=== PATIENT | female | born 1965 | race Caucasian/White ===

== ENCOUNTER 2022-02-22 10:05 | Outpatient (CLI) | payer BC, SELFPAY ==
--- NOTE | ~2022-02-22 | XR_ITS ---
XR abdomen/kub 1V 02/22/2022 10:34 Indication: Renal stones Procedure: KUB Comparison: No prior studies for comparison. Findings: There is a right renal stone measuring 1.9 x 1.2 cm, presumably in the renal pelvis. There are cholecystectomy clips. There are surgical changes in the right mid abdomen. Nonobstructive bowel gas pattern. There are pelvic phleboliths. Impression: 1: Right nephrolithiasis. Reviewed, dictated and finalized at location A. Impression: 1: Right nephrolithiasis.
--- NOTE | ~2022-02-22 | CT_ITS ---
EXAMINATION: CT abdomen pelvis wo con DATE: 02/22/2022 10:34 INDICATION: Right flank pain. Hematuria. Renal calculus. TECHNIQUE: Computed tomography (CT) of the abdomen and pelvis was performed without intravenous contr ast. Automated exposure control and iterative reconstruction technique were employed. Exam dose: 104 0.41 mGy-cm total exam DLP. COMPARISON: 02/22/2022 KUB FINDINGS: Minimal discoid atelectasis or scarring at the lung bases. Normal heart size. No pericardia l or pleural effusion. Small sliding hiatal hernia. Status post cholecystectomy. No hepatic, splenic, pancreatic, adrenal or renal space-occupying mass l esion is evident on this limited noncontrast examination. 10.2 x 19 mm right renal pelvic calculus with attenuation of 849 Hounsfield units. There are 2 or 3 subtle pinpoint nonobstructing left renal calculi. No ureteral calculus is noted on either side. Minimal right hydronephrosis. Normal caliber of the abdominal aorta. No intraperitoneal or retroperitoneal or pelvic mass lesion or adenopathy or ascites. Probable left approximately 2.1 cm uterine fibroid. The uterus, adnexa and urinary bladder are otherw ise unremarkable. Small fat-containing umbilical hernia. Diffuse idiopathic skeletal hyperostosis of the thoracic spine. No suspicious osteolytic or osteoblas tic lesions are noted. IMPRESSION: 1.2 x 19 mm right renal pelvic calculus. Minimal right hydronephrosis. Minimal nonobstructive left nephrolithiasis No ureteral calculus Small sliding hiatal hernia Status post cholecystectomy Reviewed, dictated and finalized at Location A. Reviewed, dictated and finalized at location B. IMPRESSION: 1.2 x 19 mm right renal pelvic calculus. Minimal right hydronephro sis. Minimal nonobstructive left nephrolithiasis No ureteral calculus Small sliding hiatal hernia Status post cholecystectomy
== END 2022-02-22 10:06 ==
PROVIDERS: PCP Internal Medicine Infectious Disease; Visit Provider Urology
DX: N20.0 Calculus of kidney (principal); K44.9 Diaphragmatic hernia without obstruction or gangrene; Z90.49 Acquired absence of other specified parts of digestive tract
CPT/HCPCS: 74018; 74176

== ENCOUNTER 2022-02-26 15:25 | Outpatient (CLI) | payer BC, SELFPAY ==
--- NOTE | 2022-02-26 15:30 | ECG_ITS ---
Measurements Intervals [employer] Rate: 86 P: 65 CO: 149 QRS: 13 QRSD: 101 T: 73 QT: 376 QTc: 451 Interpretive Statements SINUS RHYTHM NONSPECIFIC T-WAVE ABNORMALITY BASELINE ARTIFACT BORDERLINE ECG NO PREVIOUS ECG AVAILABLE FOR COMPARISON Electronically Signed On 02-26-2022 16:40:52 CDT by Lazaro Blackmon M.D.
[2022-02-26 16:10] LABS: Prothrombin Time 12.4 Seconds (11.1-14.7)
== END 2022-02-26 15:26 | disposition home or self-care (01) ==
LOC: ANHSURGERY 15:32
PROVIDERS: PCP Internal Medicine Infectious Disease; Visit Provider Urology
DX: Z01.818 Encounter for other preprocedural examination (principal); I10 Essential (primary) hypertension; N20.0 Calculus of kidney
CPT/HCPCS: 36415; 85610; 85730; 87086; 87088; 93005

== ENCOUNTER 2022-03-02 01:04 | Day surgery (SDC) | payer BC, SELFPAY ==
[2022-02-26 11:31] VITALS: BMI 39.1
--- NOTE | 2022-02-26 11:44 | PC.NURSE ---
Report to the Outpatient Waiting Room, entrance under the green pavilion located off [facility], at time 10:30 on date 03/02/22. OR Time: 12:30. - You and your visitor will be asked a series of questions to screen for COVID 19 for your protection. - Only one visitor is allowed at this time. - The patient visitor is requested to leave or wait in car when not with patient. - A mask is required within the hospital. Patients may have clear liquids (water, carbonated beverages, clear teas, apple juice) until 3 hours prior to surgery (9:30) with a maximum of 20 ounces. - No food from midnight until time of surgery Take the following medications with a SIP of water the morning of surgery: BUPROPION, FLUOXETINE, GABAPENTIN Medications to discontinue per physician: N/A Date to take last dose: N/A Please no make-up, nail pashto, hairspray, perfume, deodorant, or body powder the day of surgery. No jewelry (including any body piercings) or valuables the day of surgery, leave them at home. Please take a shower or bath the night before, or the morning of, surgery with an antibacterial soap. Wear comfortable, loose fitting clothing. - Jewelry must be removed prior to entering the operating room. Rings and piercings that are not removed may be cut off. - The hospital will not accept responsibility for valuables. - Please leave all valuables, including medications, at home the day of surgery. If you are going home after surgery, a licensed vending route driver must drive you home. - NO public transportation without another adult. - We recommend that an adult stay with you for 24 hours following discharge. - We also recommend that you do not drive, make important decision, drink alcoholic beverages, or take any drugs that were not prescribed by your health care provider for at least 24 hours after your discharge time. Follow any additional instructions given to you from your surgeon. If you or anyone in your household have experienced Covid symptoms in the past week, please notify your surgeon or the nurse liaison at the phone number below for possible testing. Telephone instructions given to PT - JORDON LAGUNA and asked if any additional questions and then verbalized understanding. Patient advised to call surgeon office or pre surgery nurse liaison [phone] if any additional questions.
--- NOTE | 2022-03-01 15:27 | WPDANESEPPF ---
Anes - Initial Pre Proc Eval Procedure: Operation Date: 03/02/22 12:30 Proposed Procedures p Right Extracorporeal Shock Wave Lithotripsy - Anoop Brower MD s Cystoscopy, Right Retrograde Pyelogram, Right Ureteral Stent Placement - Anoop Brower MD Date/Time: 03/01/22 15:27 Surgeon: Anoop Brower MD Pre Op Diagnosis: Rt Renal Stone Patient Data Age: 57 Gender: F Height: 1.7 m Weight: 113.4 kg Allergies Allergy/AdvReac Type Severity Reaction Status Date / Time Penicillins Allergy Rash Verified 02/26/22 11:29 Home Medications Medication Instructions Recorded Confirmed Type amlodipine 10 mg-atorvastatin 20 1 tablet PO DAILY 02/19/20 02/26/22 History mg tablet bupropion HCl 300 mg 24 hr tablet, 300 mg PO QAM 02/19/20 02/26/22 History extended release (Wellbutrin XL) fluoxetine 40 mg capsule 40 mg PO DAILY 02/19/20 02/26/22 History gabapentin 300 mg capsule 300 mg PO TID 02/26/22 02/26/22 History Patient hx anesthesia problems: none Family hx anesthesia problems: none Results Review: All pre-operative results and documents have been reviewed as part of the pre-operative evaluation. [facility] Past Medical History Medical History (Updated 03/01/22 @ 15:29 by Marcial Arellano MD) Anemia Anxiety delivery delivered Cholecystectomy planned Crohn's disease Depression Fibromyalgia Hyperlipidemia Hypertension Obesity BEHZAD on CPAP Surgical History Surgical History H/O tubal ligation History of appendectomy Family History Family History Father Carcinoma of colon Social History Social History Smoking status: Never smoker Alcohol intake: current Drinks per week: 2 Alcohol use details: 3-4/MONTH Substance use: never Substance use type: does not use Living arrangements: with family Additional living arrangements comments: SON Spiritual care concerns: No Anes - Eval Final PreProcedure Day of Procedure 03/01/22 15:27 Patient weight: obese Heart: regular rate and rhythm Lungs: clear to auscultation and normal air movement Airway: Mallampati scale class II Neurological: alert and oriented Last oral intake: >/= 8 hours ASA classification: III Emergent: no Anesthetic plan: proceed Anesthesia type and monitoring: general LMA Results Review: All pre-operative results and documents have been reviewed as part of the pre-operative evaluation. Informed Consent: The patient's anesthetic plan and its attendant risks and benefits were discussed with the patient/family/POA. Questions were solicited and answers provided to the satisfaction of the patient/family/POA.
--- NOTE | ~2022-03-02 | XR_ITS ---
EXAMINATION: XR abdomen/kub 1V DATE: 03/02/2022 10:41 INDICATION: Right kidney stone. TECHNIQUE: A supine view of the abdomen on 2 radiographs was obtained. COMPARISON: CT abdomen and pelvis 02/22/2022 FINDINGS: There are no dilated loops of bowel. There is a bowel staple line in right abdomen. There i s a 17 mm stone in right kidney. Surgical clips in the right upper quadrant are likely from cholecyst ectomy. There are phleboliths in the pelvis. IMPRESSION: 1. 17 mm stone in right kidney. Reviewed, dictated and finalized at location A.
--- NOTE | 2022-03-02 10:50 | WPDHPUPDATE1 ---
History and Physical Update Update Date/Time: 03/02/22 10:50 History and Physical has been reviewed, including an updated exam of the patient. There are NO changes in the patient's condition. Risks, benefits, and alternatives have been discussed and questions answered. Patient agrees to proceed with procedure. Proceed with cysto, right retrograde pyelogram, right stent placement, lithotripsy of right renal calculus
[2022-03-02 11:00] VITALS: BP 150/100; PULSE 108; RESP 16; TEMP 36.9; O2SAT 97
[2022-03-02] MEDS: LACTATED RINGERS 1,000 ML 30 ML IV CONT ×2 (11:18→12:56)
[2022-03-02] MEDS: ceFAZolin 2 GM/D5W 50 ML 2 GM/50 ML BAG IVPB (11:59)
--- NOTE | 2022-03-02 12:46 | P.OP_ITS ---
Procedure Note - Detailed Date of Procedure 03/02/22 Pre-op Diagnosis Rt Renal Stone Post-op Diagnosis Same Procedure Performed Cystoscopy, right ureteral stent placement 4.8 Micronesian contour, lithotripsy of right renal calculus 2 cm Surgeon Anoop Brower MD Anesthesia General Description of Procedure Patient is taken to the operative suite correctly identified. Once anesthesia was obtained she was placed in frog-leg position and prepped and draped usual sterile fashion. Sixteen Micronesian scope was inserted into the bladder. There was no tumors noted. The right ureteral orifice was cannulated with a guidewire. A 4.8 Micronesian contour stent was placed with the proximal end coiled around the stone in the renal pelvis and the distal in bladder. 2% viscous lidocaine was inserted into the urethra. Patient was repositioned and the stone was localized in both planes. Two thousand five hundred shocks were given to the stone. Patient tolerated procedure well without any complications and was taken recovery room stable condition. She will follow-up in 7-10 days with KUB. Drains Yes Packing No Pathology None sent Complications No immediate complications Condition Stable Disposition PACU
[2022-03-02 12:55] VITALS: BP 127/96; PULSE 97; RESP 12; TEMP 36.5; O2SAT 100
[2022-03-02 13:10] VITALS: BP 141/92; PULSE 104; RESP 17; O2SAT 100
[2022-03-02 13:25] VITALS: BP 151/97; PULSE 97; RESP 18; O2SAT 96
[2022-03-02 13:31] VITALS: BP 160/96; PULSE 90; RESP 17
[2022-03-02 14:00] VITALS: BP 150/95; PULSE 94; RESP 17
== END 2022-03-02 14:31 | disposition home or self-care (01) ==
PROVIDERS: PCP Internal Medicine Infectious Disease; Visit Provider Urology
PROC: (CPT 50590; principal; 2022-03-02 12:30)
PROC: (CPT 52352; 2022-03-02 12:30)
DX: N20.0 Calculus of kidney (principal); R10.9 Unspecified abdominal pain; D64.9 Anemia, unspecified; F41.9 Anxiety disorder, unspecified; G47.33 Obstructive sleep apnea (adult) (pediatric); F32.A Depression, unspecified; K50.90 Crohn's disease, unspecified, without complications; M79.7 Fibromyalgia; E78.5 Hyperlipidemia, unspecified; E66.9 Obesity, unspecified; Z68.38 Body mass index [BMI] 38.0-38.9, adult
CPT/HCPCS: 52332; 50590; 74018; A9270; C1769; C2617; J0690; J1100; J2250; J2370; J2405; J2704; J3010; J7030; J7120

== ENCOUNTER → 2022-03-19 12:54 | Outpatient (CLI) | payer BC, SELFPAY ==
--- NOTE | ~2022-03-19 | XR_ITS ---
EXAMINATION: XR abdomen/kub 1V INDICATION: Calculus of the kidney TECHNIQUE: Supine views of the abdomen were obtained on 2 radiographs. COMPARISON: 03/02/2022 FINDINGS: A right internal ureteral stent has been placed in expected position. A stone previously pr ojecting in the right renal pelvis now appears to project in the lower pole of the right kidney. No s tones are identified along the internal ureteral stent. There are phleboliths of the pelvis. A surgic al anastomosis is noted in the right mid abdomen. There is mild osteoarthritis of the hips. Surgical clips in the right upper quadrant are likely from prior cholecystectomy. IMPRESSION: 1. Right internal ureteral stent placed in expected position. Previously identified stone of the righ t renal pelvis now projects in the right kidney lower pole. Reviewed, dictated and finalized at location B. IMPRESSION: 1. Right internal ureteral stent placed in expected position. Previously identi fied stone of the right renal pelvis now projects in the right kidney lower amelia e.
== END ==
PROVIDERS: PCP Internal Medicine Infectious Disease; Visit Provider Urology
DX: N20.0 Calculus of kidney (principal)
CPT/HCPCS: 74018

== ENCOUNTER 2022-03-23 09:28 | Outpatient (CLI) | payer BC, SELFPAY ==
[2022-03-23 10:19] LABS: Prothrombin Time 12.5 Seconds (11.1-14.7)
== END 2022-03-23 09:29 | disposition home or self-care (01) ==
LOC: ANHSURGERY 09:32
PROVIDERS: PCP Internal Medicine Infectious Disease; Visit Provider Urology
DX: N20.0 Calculus of kidney (principal); Z01.818 Encounter for other preprocedural examination
CPT/HCPCS: 36415; 85610; 85730; 87086; 87088

== ENCOUNTER 2022-03-30 00:33 | Day surgery (SDC) | payer BC, SELFPAY ==
[2022-03-21 15:55] VITALS: BMI 38.9
--- NOTE | 2022-03-21 16:00 | PC.NURSE ---
Report to the Outpatient Waiting Room, entrance under the green pavilion located off [facility], at time 6:30 on date 03/30/22. OR Time: 8:30. - You and your visitor will be asked to self-screen and do not enter if you have any COVID symptoms. - Only one visitor and NO children visitors are allowed at this time. - The patient visitor is requested to leave or wait in car when not with patient due to restrictions. - A mask is required within the hospital. Patients may have clear liquids (water, carbonated beverages, clear teas, apple juice) until 3 hours prior to surgery (5:30) with a maximum of 20 ounces. - No food from midnight until time of surgery Take the following medications with a SIP of water the morning of surgery: BUPROPION, FLUOXETINE, GABAPENTIN Medications to discontinue per physician: N/A Date to take last dose: N/A Please no make-up, nail cypriot, hairspray, perfume, deodorant, or body powder the day of surgery. No jewelry (including any body piercings) or valuables the day of surgery, leave them at home. Please take a shower or bath the night before, or the morning of, surgery with an antibacterial soap. Wear comfortable, loose fitting clothing. - Jewelry must be removed prior to entering the operating room. Rings and piercings that are not removed may be cut off. - The hospital will not accept responsibility for valuables. - Please leave all valuables, including medications, at home the day of surgery. If you are going home after surgery, a licensed auto crane driver must drive you home. - NO public transportation without another adult. - We recommend that an adult stay with you for 24 hours following discharge. - We also recommend that you do not drive, make important decision, drink alcoholic beverages, or take any drugs that were not prescribed by your health care provider for at least 24 hours after your discharge time. Follow any additional instructions given to you from your surgeon. If you or anyone in your household have experienced Covid symptoms in the past week, please notify your surgeon or the nurse liaison at the phone number below for possible testing. Telephone instructions given to PT - JORDON LAGUNA and asked if any additional questions and then verbalized understanding. Patient advised to call surgeon office or pre surgery nurse liaison [phone] if any additional questions.
--- NOTE | 2022-03-29 15:39 | P.PNAN_ITS ---
Anes - Initial Pre Proc Eval Procedure: Operation Date: 03/30/22 08:30 Proposed Procedures p Right Renal Extracorporeal Shock Wave Lithotripsy - Anoop Brower MD Date/Time: 03/29/22 15:39 Surgeon: Anoop Brower MD Pre Op Diagnosis: right renal kidney stone Patient Data Age: 57 Gender: F Height: 1.7 m Weight: 112.7 kg Allergies Allergy/AdvReac Type Severity Reaction Status Date / Time Penicillins Allergy Rash Verified 03/21/22 16:03 Home Medications Medication Instructions Recorded Confirmed Type amlodipine 10 mg-atorvastatin 20 1 tablet PO DAILY 02/19/20 03/21/22 History mg tablet bupropion HCl 300 mg 24 hr tablet, 300 mg PO QAM 02/19/20 03/21/22 History extended release (Wellbutrin XL) fluoxetine 40 mg capsule 40 mg PO DAILY 02/19/20 03/21/22 History gabapentin 300 mg capsule 300 mg PO TID 02/26/22 03/21/22 History Patient hx anesthesia problems: none Family hx anesthesia problems: none Results Review: All pre-operative results and documents have been reviewed as part of the pre- operative evaluation. [facility] Past Medical History Medical History (Updated 03/01/22 @ 15:29 by Marcial Arellano MD) Anemia Anxiety delivery delivered Cholecystectomy planned Crohn's disease Depression Fibromyalgia Hyperlipidemia Hypertension Obesity BEHZAD on CPAP Surgical History Surgical History H/O tubal ligation History of appendectomy Family History Family History Father Carcinoma of colon Social History Social History Smoking status: Never smoker Alcohol intake: current Drinks per week: 2 Alcohol use details: 3-4/MONTH Substance use: never Substance use type: does not use Additional living arrangements comments: SON Spiritual care concerns: No Anes - Eval Final PreProcedure Day of Procedure 03/29/22 15:39 Patient weight: obese Heart: regular rate and rhythm Lungs: clear to auscultation and normal air movement Airway: Mallampati scale class II Neurological: alert and oriented Last oral intake: >/= 8 hours ASA classification: III Emergent: no Anesthetic plan: proceed Anesthesia type and monitoring: general LMA Results Review: All pre-operative results and documents have been reviewed as part of the pre- operative evaluation. Informed Consent: The patient's anesthetic plan and its attendant risks and benefits were discussed with the patient/family/POA. Questions were solicited and answers provided to the satisfaction of the patient/family/POA.
[2022-03-30] VITALS (8 sets, daily range): BP systolic 120–170; BP diastolic 85–114; PULSE 86–93; RESP 12–18; TEMP 36.3–36.6; O2SAT 98–100
--- NOTE | ~2022-03-30 | XR_ITS ---
EXAMINATION: XR abdomen/kub 1V DATE: 03/30/2022 06:58 INDICATION: Kidney stone. TECHNIQUE: A supine view of the abdomen was obtained. COMPARISON: CT abdomen and pelvis 02/22/2022, abdomen radiograph 03/19/2022 FINDINGS: There are no dilated loops of bowel. There are phleboliths in the pelvis. There is a right internal ureteral stent in expected position. There are stones in right kidney lower pole. The larges t stone or cluster of stones measures 14 mm. There are staple lines in right abdomen. Surgical clips in the right upper quadrant are likely from cholecystectomy. IMPRESSION: 1. Right kidney stones. Right internal ureteral stent in expected position. Reviewed, dictated and finalized at location A.
[2022-03-30] MEDS: LACTATED RINGERS 1,000 ML 30 ML IV CONT (07:28)
--- NOTE | 2022-03-30 07:44 | WPDHPUPDATE1 ---
History and Physical Update Update Date/Time: 03/30/22 07:44 History and Physical has been reviewed, including an updated exam of the patient. There are NO changes in the patient's condition. Risks, benefits, and alternatives have been discussed and questions answered. Patient agrees to proceed with procedure. Proceed with eswl of right renal calculus
[2022-03-30] MEDS: ceFAZolin 2 GM/D5W 50 ML 2 GM/50 ML BAG IVPB (08:03)
--- NOTE | 2022-03-30 08:43 | P.OP_ITS ---
Procedure Note - Detailed Date of Procedure 03/30/22 Pre-op Diagnosis right renal kidney stone Post-op Diagnosis Same Procedure Performed ESWL right renal calculus Surgeon Anoop Brower MD Anesthesia General Description of Procedure Patient is taken to the operative suite correctly identified. Once anesthesia was obtained the stone was localized in both planes. Two thousand five hundred shocks were given to the lower pole stones. Patient tolerated procedure well without complications and was taken recovery stable condition. She will follow- up in 7-10 days with KUB. Drains Yes (Has right ureteral stent) Packing No Pathology None sent Complications No immediate complications Condition Stable Disposition PACU
== END 2022-03-30 10:45 | disposition home or self-care (01) ==
PROVIDERS: PCP Internal Medicine Infectious Disease; Visit Provider Urology
PROC: (CPT 50590; principal; 2022-03-30 08:30)
DX: N20.0 Calculus of kidney (principal); I10 Essential (primary) hypertension; E78.5 Hyperlipidemia, unspecified; M79.7 Fibromyalgia; D64.9 Anemia, unspecified; G47.33 Obstructive sleep apnea (adult) (pediatric); K50.90 Crohn's disease, unspecified, without complications; F41.9 Anxiety disorder, unspecified; F32.A Depression, unspecified; E66.9 Obesity, unspecified; Z68.39 Body mass index [BMI] 39.0-39.9, adult
CPT/HCPCS: 50590; 74018; J0690; J2250; J3010; J7120

== ENCOUNTER → 2022-04-06 09:45 | Outpatient (CLI) | payer BC, SELFPAY ==
--- NOTE | ~2022-04-06 | XR_ITS ---
EXAMINATION: XR abdomen/kub 1V INDICATION: Calculus of the kidney TECHNIQUE: Supine views of the abdomen were obtained on 2 radiographs. COMPARISON: None FINDINGS: A right internal ureteral stent is in expected position. There are stone fragments in the l ower pole of the right kidney without significant change. No definite stone fragments are identified along the internal ureteral stent. There are phleboliths of the pelvis. Surgical changes are noted in the right mid abdomen. There are no dilated loops of bowel. Surgical clips in the right upper quadra nt are likely from prior cholecystectomy. IMPRESSION: 1. Right internal ureteral stent in expected position. 2. Stable right nephrolithiasis. Reviewed, dictated and finalized at location B.
== END ==
PROVIDERS: PCP Internal Medicine Infectious Disease; Visit Provider Urology
DX: N20.0 Calculus of kidney (principal)
CPT/HCPCS: 74018

== ENCOUNTER 2022-04-20 08:09 | Outpatient (CLI) | payer BC, SELFPAY | END 2022-04-20 08:10 | disposition home or self-care (01) | LOC: ANHSURGERY 08:17 | PROVIDERS: PCP Internal Medicine Infectious Disease; Visit Provider Urology | DX: N20.1 Calculus of ureter (principal); Z01.818 Encounter for other preprocedural examination | CPT/HCPCS: 87086; 87088 ==

== ENCOUNTER 2022-04-24 00:29 | Day surgery (SDC) | payer BC, SELFPAY ==
[2022-04-18 09:43] VITALS: BMI 38.9
--- NOTE | 2022-04-18 09:48 | PC.NURSE ---
Report to the Outpatient Waiting Room, entrance under the green pavilion located off [facility], at time 8:45 on date 04/24/22. OR Time: 10:45. Time changes happen often and if your time is changed the preop area will call you the afternoon before. - You and your visitor will be asked to self-screen and do not enter if you have any COVID symptoms. - Only one visitor and NO children visitors are allowed at this time. - The patient visitor is requested to leave or wait in car when not with patient due to restrictions. - A mask is required within the hospital. Patients may have clear liquids (water, carbonated beverages, clear teas, apple juice) until 3 hours prior to surgery (7:45) with a maximum of 20 ounces. - No food from midnight until time of surgery Take the following medications with a SIP of water the morning of surgery: BUPROPION, FLUOXETINE, GABAPENTIN Medications to discontinue per physician: N/A Date to take last dose: N/A Please no make-up, nail yi, hairspray, perfume, deodorant, or body powder the day of surgery. No jewelry (including any body piercings) or valuables the day of surgery, leave them at home. Please take a shower or bath the night before, or the morning of, surgery with an antibacterial soap. Wear comfortable, loose fitting clothing. - Jewelry must be removed prior to entering the operating room. Rings and piercings that are not removed may be cut off. - The hospital will not accept responsibility for valuables. - Please leave all valuables, including medications, at home the day of surgery. If you are going home after surgery, a licensed special education bus driver must drive you home. - NO public transportation without another adult. - We recommend that an adult stay with you for 24 hours following discharge. - We also recommend that you do not drive, make important decision, drink alcoholic beverages, or take any drugs that were not prescribed by your health care provider for at least 24 hours after your discharge time. Follow any additional instructions given to you from your surgeon. If you or anyone in your household have experienced Covid symptoms in the past week, please notify your surgeon or the nurse liaison at the phone number below for possible testing. Telephone instructions given to PT - JORDON PERKHISER and asked if any additional questions and then verbalized understanding. Patient advised to call surgeon office or pre surgery nurse liaison [phone] if any additional questions.
[2022-04-24] VITALS (8 sets, daily range): BP systolic 143–156; BP diastolic 86–104; PULSE 81–93; RESP 16; TEMP 36.4–37; O2SAT 97–100
--- NOTE | ~2022-04-24 | XR_ITS ---
EXAMINATION: XR retrograde pyelo w/stent RT DATE: 04/24/2022 11:03 INDICATION: Right internal ureteral stent placement TECHNIQUE: Fluoroscopic images from a right internal ureteral stent placement are submitted for heather miguel. 15 seconds of fluoroscopy time. FINDINGS: No prior studies for comparison. There is a right double-J internal ureteral stent projecting in expected position, with proximal [place] loop at the level of the renal pelvis and distal loop in the pelvis within the bladder lumen. IMPRESSION: 1. Right internal ureteral stent placement. Please refer to real-time procedural findings for elpidio mcintosh. Reviewed, dictated and finalized at location B. IMPRESSION: 1. Right internal ureteral stent placement. Please refer to real-time procedu ral findings for details.
--- NOTE | 2022-04-24 08:39 | WPDHPUPDATE1 ---
History and Physical Update Update Date/Time: 04/24/22 08:39 History and Physical has been reviewed, including an updated exam of the patient. There are NO changes in the patient's condition. Risks, benefits, and alternatives have been discussed and questions answered. Patient agrees to proceed with procedure. Proceed with cysto, right retrograde pyelogram, right ureteroscopy with holmium laser, possible right stent exchange
--- NOTE | 2022-04-24 09:15 | WPDANESEPPF ---
Anes - Initial Pre Proc Eval Procedure: Operation Date: 04/24/22 10:45 Proposed Procedures p Cystoscopy, Right Ureteroscopy, Right Retrograde Pyelogram, Possible Right Stone Extraction, Possible Right Stent Placement, Possible Holmium Laser Procedure - Anoop Brower MD Date/Time: 04/24/22 09:15 Surgeon: Anoop Brower MD Pre Op Diagnosis: calculus of ureter and kidney Patient Data Age: 57 Gender: F Height: 1.7 m Weight: 113 kg Allergies Allergy/AdvReac Type Severity Reaction Status Date / Time Penicillins Allergy Intermediate Rash Verified 04/24/22 09:11 Home Medications Medication Instructions Recorded Confirmed Type bupropion HCl 300 mg 24 hr tablet, 300 mg PO QAM 02/19/20 04/24/22 History extended release (Wellbutrin XL) fluoxetine 40 mg capsule 40 mg PO DAILY 02/19/20 04/24/22 History gabapentin 300 mg capsule 300 mg PO TID 02/26/22 04/24/22 History amlodipine 10 mg-benazepril 20 mg 1 cap PO DAILY 04/18/22 04/24/22 History capsule Patient hx anesthesia problems: none Family hx anesthesia problems: none Results Review: All pre-operative results and documents have been reviewed as part of the pre-operative evaluation. [facility] Past Medical History Medical History (Updated 03/01/22 @ 15:29 by Marcial Arellano MD) Anemia Anxiety delivery delivered Cholecystectomy planned Crohn's disease Depression Fibromyalgia Hyperlipidemia Hypertension Obesity BEHZAD on CPAP Surgical History Surgical History H/O tubal ligation History of appendectomy Family History Family History Father Carcinoma of colon Social History Social History Smoking status: Never smoker Alcohol intake: current Drinks per week: 2 Alcohol use details: 3-4/MONTH Substance use: never Substance use type: does not use Living arrangements: with family Additional living arrangements comments: SON Gender identity (if verbalized by the patient): Female Sexual Orientation (if Verbalized by the Patient): Straight or Heterosexual Spiritual care concerns: No Anes - Eval Final PreProcedure Day of Procedure 04/24/22 09:15 Patient weight: obese Heart: regular rate and rhythm Lungs: clear to auscultation and normal air movement Airway: Mallampati scale class II Neurological: alert and oriented Last oral intake: >/= 8 hours ASA classification: III Emergent: no Anesthetic plan: proceed Anesthesia type and monitoring: general LMA Results Review: All pre-operative results and documents have been reviewed as part of the pre-operative evaluation. Informed Consent: The patient's anesthetic plan and its attendant risks and benefits were discussed with the patient/family/POA. Questions were solicited and answers provided to the satisfaction of the patient/family/POA.
--- NOTE | 2022-04-24 09:28 | SUR.PREOP ---
dr gonzalez aware bp 156/104.
[2022-04-24] MEDS: LACTATED RINGERS 1,000 ML 30 ML IV CONT (09:30)
[2022-04-24] MEDS: ceFAZolin 2 GM/D5W 50 ML 2 GM/50 ML BAG IVPB (10:24)
[2022-04-24] MEDS: LIDOCAINE HCL 2% GEL UROJET 10 ML PKG MUCOUS MEM (10:36)
--- NOTE | 2022-04-24 10:53 | P.OP_ITS ---
Procedure Note - Detailed Date of Procedure 04/24/22 Pre-op Diagnosis calculus of kidney Post-op Diagnosis Same Procedure Performed Cystoscopy, right retrograde pyelogram, right ureteroscopy, right ureteral stent exchange Surgeon Anoop Brower MD Anesthesia General Description of Procedure Patient is taken to the operative suite correctly identified. Once anesthesia was obtained she was placed in dorsal lithotomy position and prepped and draped usual sterile fashion. Twenty-two Cameroonian scope inserted the bladder. The prior stent was grasped and brought out to the meatus. A guidewire was inserted through the stent. Mini flexible ureteral scope was then passed all the way up to the kidney. There is no ureteral stones noted. The entire kidney was visualized. Patient had extremely small fragments which had the appearance of a prior pop [place] of the stone from her lithotripsy. They were too small to grasp. We flushed these out of the lower pole calices. There was nothing that we could grasp given its size. A 4.8 x 24 cm stent was then placed with the proximal in the renal pelvis distal in the bladder. Bladder was drained. 2% viscous lidocaine was inserted urethra. Patient was taken recovery stable condition. Will plan on stent removal next week in the office. Estimated Blood Loss 0 Drains Yes Packing No Pathology None sent Complications No immediate complications Condition Stable Disposition PACU
== END 2022-04-24 12:40 | disposition home or self-care (01) ==
PROVIDERS: PCP Internal Medicine Infectious Disease; Visit Provider Urology
PROC: (CPT 52352; principal; 2022-04-24 10:45)
DX: N20.0 Calculus of kidney (principal); I10 Essential (primary) hypertension; F41.9 Anxiety disorder, unspecified; F32.A Depression, unspecified; G47.33 Obstructive sleep apnea (adult) (pediatric); E66.9 Obesity, unspecified; Z68.39 Body mass index [BMI] 39.0-39.9, adult
CPT/HCPCS: 52332; 74420; A9270; C1758; C1769; C2617; J0690; J2250; J2405; J2704; J3010; J7120; Q9966

== ENCOUNTER 2022-09-03 08:12 | Outpatient (CLI) | payer BC, SELFPAY ==
[2022-09-03 09:01] LABS: Hematocrit 42.2 % (37.0-47.0); Hemoglobin 13.9 g/dL (12.0-15.0)
== END 2022-09-03 08:13 | disposition home or self-care (01) ==
LOC: ANHSURGERY 08:17
PROVIDERS: PCP Internal Medicine Infectious Disease; Visit Provider Obstetrics & Gynecology
DX: N95.0 Postmenopausal bleeding (principal)
CPT/HCPCS: 36415; 85014; 85018

== ENCOUNTER 2022-09-07 01:23 | Day surgery (SDC) | payer BC, SELFPAY ==
[2022-08-29 10:49] VITALS: BMI 39.1
--- NOTE | 2022-08-29 11:07 | PC.NURSE ---
Report to the Outpatient Waiting Room, entrance under the green pavilion located off [facility], at 0800 on 09-07-22. Planned Procedure Time: 1000. Time changes happen often and if your time is changed the preop area will call you the afternoon before. - You and your visitor will be asked to self-screen and do not enter if you have any COVID symptoms. - Only one visitor is requested with a max of two and NO children visitors are allowed at this time. - The patient visitor may be requested to leave or wait in car when not with patient due to distancing restrictions. - A mask is optional within the hospital at this time. Patients may have clear liquids (water, carbonated beverages, clear teas, apple juice) until 3 hours prior to surgery with a maximum of 20 ounces. 0700 - No food from midnight until time of surgery - Infants may have breast milk until 4 hours before surgery, formula 6 hours prior to surgery. - Children will be allowed to drink immediately following surgery. If applicable, please bring a bottle or sippy cup to assist with drinking. Juice, water, soda, and popsicles are readily available. For infants on formula, please bring formula the day of surgery. Pacifiers are allowed. Take the following medications with a SIP of water the morning of surgery: bupropion DO NOT STOP ANY OF YOUR OTHER PRESCRIPTION MEDICATIONS PRIOR TO SURGERY ?EXCEPT THE FOLLOWING Medications to discontinue per physician: N/A Please no make-up, nail salvadorean, hairspray, perfume, deodorant, or body powder the day of surgery. No jewelry (including any body piercings) or valuables the day of surgery, leave them at home. Please take a shower or bath the night before, or the morning of, surgery with an antibacterial soap. Wear comfortable, loose fitting clothing. Children are encouraged to wear pajamas. - Jewelry must be removed prior to entering the operating room. Rings and piercings that are not removed may be cut off. - The hospital will not accept responsibility for valuables. - Please leave all valuables, including medications, at home the day of surgery. If you are going home after surgery, a licensed sprinkler driver must drive you home. - NO public transportation without another adult if you receive anesthesia. - We recommend that an adult stay with you for 24 hours following discharge. - We also recommend that you do not drive, make important decision, drink alcoholic beverages, or take any drugs that were not prescribed by your health care provider for at least 24 hours after your discharge time. For Pediatric surgeries, we recommend two adults accompany the child home. Follow any additional instructions given to you from your surgeon. If you or anyone in your household have experienced Covid symptoms in the past week, please notify your surgeon or the nurse liaison at the phone number below for possible testing. Telephone instructions given to Miko Gan and asked if any additional questions and then verbalized understanding. Patient advised to call surgeon office or pre surgery nurse liaison [phone] if any additional questions.
--- NOTE | 2022-09-05 11:30 | PM.IMHP ---
H&P: HPI History of Present Illness Date/Time: 09/05/22 11:30 Chief Complaint: Postmenopausal bleeding Narrative: See 57-year-old female 1 para 1 who is admitted for hysteroscopy D and C secondary to postmenopausal bleeding. She has been on no hormones she has been on no medications but had a period in 5 years she is not sexually active and had ablation before in the past. Risks and benefits of hysteroscopy and dilatation curettage reviewed. She had all questions answered and received the ACOG handouts entitled hysteroscopy as well as laparoscopy. She asked to proceed PMFSH Past Medical History Medical History Anemia Anxiety delivery delivered Cholecystectomy planned Crohn's disease Depression Fibromyalgia Hyperlipidemia Hypertension Obesity BEHZAD on CPAP Surgical History Surgical History H/O tubal ligation History of appendectomy Family History Family History Father Carcinoma of colon Social History Social History Smoking status: Never smoker Second hand tobacco smoke exposure: No Alcohol intake: current Drinks per week: 2 Alcohol use details: occassionally Substance use: never Substance use type: does not use Living arrangements: with family Additional living arrangements comments: SON Gender identity (if verbalized by the patient): Female Sexual Orientation (if Verbalized by the Patient): Straight or Heterosexual Spiritual care concerns: No Meds Home Medications and Allergies Home Medications Medication Instructions Recorded Confirmed Type bupropion HCl 300 mg 24 hr tablet, 300 mg PO QAM 02/19/20 08/29/22 History extended release (Wellbutrin XL) fluoxetine 40 mg capsule 40 mg PO DAILY 02/19/20 08/29/22 History amlodipine 10 mg-benazepril 20 mg 1 cap PO DAILY 04/18/22 08/29/22 History capsule Allergies Allergy/AdvReac Type Severity Reaction Status Date / Time Penicillins Allergy Intermediate Rash Verified 08/29/22 10:42 Exam Const: General: cooperative, healthy appearing, comfortable and obese Orientation/consciousness: oriented to person, oriented to place and oriented to time HENMT: Head: normal to inspection Resp: Effort & Inspection: normal respiratory effort Cardio: Rate: regular rate Rhythm: regular rhythm Heart sounds: S1 normal heart sound present and S2 normal heart sound present GI: Inspection: normal to inspection : External Female Exam: normal external appearance Speculum Exam - Vagina: normal appearance of the vagina and vaginal bleeding Speculum Exam - Cervix: normal appearance of the cervix Bimanual exam- vagina & uterus: enlarged Bimanual Exam- Adnexa, other: normal adnexae Assessment and Plan Assessment and plan (1) Postmenopausal bleeding: Code(s): N95.0 - Postmenopausal bleeding Status: Acute (2) Obesity: Code(s): E66.9 - Obesity, unspecified Status: Acute Plan Hysteroscopy/dilatation and curettage
--- NOTE | 2022-09-07 07:09 | WPDHPUPDATE1 ---
History and Physical Update Update Date/Time: 09/07/22 07:09 History and Physical has been reviewed, including an updated exam of the patient. There are NO changes in the patient's condition. Risks, benefits, and alternatives have been discussed and questions answered. Patient agrees to proceed with procedure.
[2022-09-07 07:15] VITALS: BP 131/77; PULSE 85; RESP 16; TEMP 36.3; O2SAT 98
[2022-09-07] MEDS: ACETAMINOPHEN 500 MG TABLET 1000 MG PO (07:19)
[2022-09-07] MEDS: LACTATED RINGERS 1,000 ML 30 ML IV CONT (07:30)
--- NOTE | 2022-09-07 07:59 | WPDANESEPPF ---
Anes - Initial Pre Proc Eval Procedure: Operation Date: 09/07/22 08:30 Proposed Procedures p Hysteroscopy Dilation and Curettage - Lonny Burrows MD Date/Time: 09/07/22 07:59 Surgeon: Lonny Burrows MD Pre Op Diagnosis: Post Menopausal Bleeding Patient Data Age: 57 Gender: F Height: 1.7 m Weight: 113.4 kg Allergies Allergy/AdvReac Type Severity Reaction Status Date / Time Penicillins Allergy Intermediate Rash Verified 08/29/22 10:42 Home Medications Medication Instructions Recorded Confirmed Type bupropion HCl 300 mg 24 hr tablet, 300 mg PO QAM 02/19/20 08/29/22 History extended release (Wellbutrin XL) fluoxetine 40 mg capsule 40 mg PO DAILY 02/19/20 08/29/22 History amlodipine 10 mg-benazepril 20 mg 1 cap PO DAILY 04/18/22 08/29/22 History capsule hydrocodone 5 mg-acetaminophen 325 1 tablet PO Q4H PRN pain #20 tabs 09/07/22 Rx mg tablet Patient hx anesthesia problems: none Family hx anesthesia problems: none Results Review: All pre-operative results and documents have been reviewed as part of the pre-operative evaluation. [facility] Past Medical History Medical History Anemia Anxiety delivery delivered Cholecystectomy planned Crohn's disease Depression Fibromyalgia Hyperlipidemia Hypertension Obesity BEHZAD on CPAP Surgical History Surgical History H/O tubal ligation History of appendectomy Family History Family History Father Carcinoma of colon Social History Social History Smoking status: Never smoker Second hand tobacco smoke exposure: No Alcohol intake: current Drinks per week: 2 Alcohol use details: occassionally Substance use: never Substance use type: does not use Living arrangements: with family Additional living arrangements comments: SON Gender identity (if verbalized by the patient): Female Sexual Orientation (if Verbalized by the Patient): Straight or Heterosexual Spiritual care concerns: No Anes - Eval Final PreProcedure Day of Procedure 02/10/23 07:59 Patient weight: obese Heart: regular rate and rhythm Lungs: clear to auscultation Airway: Mallampati scale class II Neurological: alert and oriented Last oral intake: >/= 8 hours ASA classification: III Emergent: no Anesthetic plan: proceed Anesthesia type and monitoring: general GIVS and standard monitoring Results Review: All pre-operative results and documents have been reviewed as part of the pre-operative evaluation. Informed Consent: The patient's anesthetic plan and its attendant risks and benefits were discussed with the patient/family/POA. Questions were solicited and answers provided to the satisfaction of the patient/family/POA.
[2022-09-07] MEDS: LIDOCAINE HCL 1% LOCAL INJ 20 ML VIAL 10 ML INFILTRATE (09:13)
--- NOTE | 2022-09-07 09:19 | W.PM.PROC2 ---
Procedure Note - Detailed Date of Procedure 09/07/22 Pre-op Diagnosis Post Menopausal Bleeding Post-op Diagnosis Same Procedure Performed Hysteroscopy/dilatation curettage Surgeon Lonny Burrows MD Anesthesia MAC and Local Indications sh 57-year-old female with vaginal bleeding. Findings Uterus was irregular due to her previous ablation. No evidence of abnormalities were seen. Description of Procedure Patient was prepped draped sterile placed in the dorsal lithotomy. Excellent IV sedation weighted speculum placed in posterior fornix vagina. Anterior lip of the cervix grasped with single-tooth tenaculum. 2.5cc 1% xylocaine anesthesia placed at 2, 4, 8, 10:00 a.m. of the cervix uterus sounded to 7cm. Serial dilatation with fragmented dilators performed followed passes of the of the to hysteroscope. No abnormalities were seen scrapings were taken around the entire 360? the instrument was removed blood loss was estimated at5cc. All sponge, needle instrument counts were correct. Immediate complications Estimated Blood Loss 5 Drains No Packing No Pathology Yes Complications No immediate complications Condition Stable Disposition PACU
[2022-09-07 09:22] VITALS: BP 116/73; PULSE 84; RESP 16; O2SAT 98
[2022-09-07 09:50] VITALS: BP 119/78; PULSE 72; RESP 16
[2022-09-07 10:16] VITALS: BP 133/85; PULSE 71; RESP 16
== END 2022-09-07 10:29 | disposition home or self-care (01) ==
PROVIDERS: PCP Internal Medicine Infectious Disease; Visit Provider Obstetrics & Gynecology
PROC: 0U5B8ZZ Destruction of Endometrium, Via Natural or Artificial Opening Endoscopic (ICD-10-PCS; CPT 58563; principal; 2022-09-07 08:30)
DX: N95.0 Postmenopausal bleeding (principal); I10 Essential (primary) hypertension; G47.33 Obstructive sleep apnea (adult) (pediatric); F41.9 Anxiety disorder, unspecified; F32.A Depression, unspecified; M79.7 Fibromyalgia; Z79.891 Long term (current) use of opiate analgesic; E66.9 Obesity, unspecified; Z68.39 Body mass index [BMI] 39.0-39.9, adult
CPT/HCPCS: 58558; 88305; A9270; J2704; J3010; J7120

== ENCOUNTER 2024-01-13 08:52 | Outpatient (CLI) | payer BC, SELFPAY ==
--- NOTE | ~2024-01-13 | XR_ITS ---
EXAMINATION: XR knee RT min 4V, XR knee LT min 4V DATE: 01/13/2024 09:11 INDICATION: Bilateral knee pain TECHNIQUE: 1. Weight bearing anteroposterior and Starr, sunrise, and flexed lateral views of the right knee were obtained. 2. Weight bearing anteroposterior and Starr, sunrise, and flexed lateral views of the left knee w ere obtained. COMPARISON: None. FINDINGS: Relatively symmetric mild lateral subluxation and 12 degree genu varus at both knees. Associated edgar re joint space narrowing in the medial compartments of both knees with suggestion of some early remod eling along the medial tibial plateaus and weightbearing medial femoral condyles. Small and moderate- sized marginal osteophytes consistent with additional mild osteoarthritis in the medial and lateral c ompartments. No fractures. No knee joint effusions on either the left or right. Calcific density with appearance suggestive of heterotopic ossification projecting over the distal right quadriceps muscul ature on the lateral projection however this may be artifactual as no correlate is seen on the remain ing projections. IMPRESSION: 1. Relatively symmetric severe medial compartment predominant tricompartmental osteoarthritis at both knees with 12 degrees bilateral genu varus. Reviewed, dictated and finalized at location A. IMPRESSION: 1. Relatively symmetric severe medial compartment predominant tricompartmental osteoarthritis at both knees with 12 degrees bilateral genu varus.
== END 2024-01-13 08:53 | disposition home or self-care (01) ==
PROVIDERS: PCP Internal Medicine Infectious Disease; Visit Provider Orthopaedic Surgery
DX: M25.561 Pain in right knee (principal); M25.562 Pain in left knee
CPT/HCPCS: 73564